=== PATIENT | male | born 1970 | race Caucasian/White ===

== ENCOUNTER 2020-11-07 14:21 | Inpatient (IN) | payer BC ==
[~2020-11-07] VITALS: Ht 165.1 cm; Wt 81.6 kg
[2020-11-07 14:28] VITALS: BP 133/96
[2020-11-07 15:15] LABS: ABSOLUTE NEUTROPHILS 10.7 thou/uL (1.4-8.2); BASOPHILS 0.4 % (0.0-2.0); HEMATOCRIT 41.3 % (42.0-52.0); HEMOGLOBIN 13.5 gm/dL (14.0-18.0); LYMPHOCYTES 3.8 % (24.0-44.0); MCH 29.3 pg (26.0-34.0); MCHC 32.7 g/dL (28.0-37.0); MCV 89.5 fL (80.0-100.0); MONOCYTES 7.6 % (1.0-8.0); PLATELET COUNT 238 thou/uL (150-400); POLYS 88.2 % (36.0-66.0); RBC 4.62 mil/uL (4.50-6.00); RDW 13.2 % (10.5-14.5); WBC 12.1 thou/uL (4.0-11.0)
[2020-11-07 15:31] LABS: ALBUMIN 3.1 g/dL (3.4-5.0); CREATININE 1.1 mg/dL (0.7-1.3); POTASSIUM 3.8 mmol/L (3.5-5.1); TOTAL BILIRUBIN 0.8 mg/dL (0.2-1.0); TOTAL PROTEIN 7.6 g/dL (6.4-8.2)
[2020-11-07 15:33] LABS: CALCIUM 8.7 mg/dL (8.5-10.1)
[2020-11-07] MEDS ORDERED: GUAIFENESIN-CODE5 ML PO (18:27)
[2020-11-07] MEDS ORDERED: MEDROL DOSPAK21 TA1 PO (18:28)
[2020-11-07] MEDS ORDERED: ASA81BEC PO (18:28)
[2020-11-07] MEDS ORDERED: AZITHROMYCIN500 MG PO (18:28)
--- NOTE | 2020-11-07 18:35 | NUR ---
KAVON-MARCOS [phone]
--- NOTE | 2020-11-07 20:31 | NUR ---
[address] [place] [id number] [phone]
[2020-11-08 08:02] VITALS: BP 118/79
[2020-11-08 12:58] VITALS: BP 113/73
[2020-11-08 14:44] VITALS: BP 113/73
[2020-11-08 15:29] VITALS: BP 113/72
[2020-11-08 16:35] VITALS: BP 125/94
--- NOTE | 2020-11-08 17:39 | NUR ---
50 year old male presented to the ED stating positive COVID results at a [facility] on [facility]-5 and symptoms have become progressively worse. NOTE PCR COVID positive test in ED. Admitted for: COVID-19 infection complicated by pneumonitis and respiratory failure/hyperglycemia/hepatitis we will continue with empiric therapy for possible secondary bacterial pneumonitis as well directed therapy toward the coronavirus, and additional diagnostic testing. Per ED record patient remains A&O x4 and askes that his Melissa be updated at [phone]. Called and spoke with Melissa and updated on role of CM. States patient has never been in a hospital before and explained how CM will follow with MD on his care and then will be able to better access needs as it begins to approach discharge disposition (s). Stated she appreciated the call and will await call to inform when patient has been moved to a unit and then eventually with CM. CM will continue to follow for discharge needs.
--- NOTE | 2020-11-08 18:25 | NUR ---
PATIENT ADMIT TO UNIT AT 1630. A/O X4. ON 6L/NC. SOB WITH EXERTION. NO PAIN. WILL KEEP MONITOR.
[2020-11-08 20:04] VITALS: BP 137/92
[2020-11-09 01:06] LABS: GLYCOHEMOGLOBIN (HGB A1C) 6.7 % (4.8-5.6); HAV IgM AB (ANTI-HAV IgM) Negative (Negative); HEPATITIS B SURFACE AG Negative (Negative); HEPATITIS C VIRUS AB <0.1 (0.0-0.9)
[2020-11-09 03:15] VITALS: BP 130/95
--- NOTE | 2020-11-09 05:01 | HC ---
[facility] [place] [address] CONSULTATION Name: MENJIVAR JORGE OROSCO Room #: 355-P ADM IN M.R.#: [id number] Admission: 11/07/20 Attend Phys: Елена Pete Discharge: Date of : 72 Report #: [id number] THIS REPORT FOR: cc: FAM - No family physician/PCP FAM - No family physician/PCP Keo Davison MD ~ DATE OF SERVICE: 11/08/2020 INFECTIOUS DISEASE CONSULTATION ATTENDING PHYSICIAN: Dr. Pete. REASON FOR EVALUATION: COVID-19 infection, complicated by pneumonitis, respiratory failure. HISTORY OF PRESENT ILLNESS: Chart reviewed, patient examined. This is a 50-year-old gentleman without significant medical history. Apparently had been feeling unwell including dyspnea, underwent COVID testing roughly 10 days ago, was confirmed to be positive and returns today with progressive dyspnea with saturations measured in the mid 80s. He does not have significant fevers, although he has had some previous. He has not had significant cough as of late. Appetite has been satisfactory. On evaluation actually had antigen was negative. PCR was positive. Glucose was slightly elevated at 127. Chest x-ray did show peripheral ground glass opacities consistent with atypical for COVID pneumonia. Lactic acid was 2.0, then repeated was 2.7, then 1.7. He was initiated on therapy with levofloxacin, given a dose of initially azithromycin and ceftriaxone. ALLERGIES: Listed as none. CURRENT MEDICATIONS: Include levofloxacin, dexamethasone, enoxaparin, zolpidem, p.r.n. analgesics and antiemetics. PAST MEDICAL HISTORY: Otherwise, unremarkable. SOCIAL HISTORY: Nonsmoker, no ethanol, no illicit drug use. FAMILY HISTORY: Noncontributory. REVIEW OF SYSTEMS: Otherwise, unremarkable 10-point review of systems. PHYSICAL EXAMINATION: GENERAL: Pleasant, alert and cooperative. He is sitting at the side of the gurney, eating his lunch, [id number] distress. He is on supplemental oxygen at 6 liters per nasal cannula. [facility] [address] [place] [address] CONSULTATION Name: JORGE WINTERS Room #: [address] [place] [address] IN M.R.#: [id number] Admission: 11/07/20 Attend Phys: Елена Pete Discharge: Date of : 72 Report #: [id number] VITAL SIGNS: Temperature 97.2, pulse 80, respirations 15, blood pressure 113/73. SKIN: Warm, dry, no rashes. HEENT: Normocephalic. Extraocular muscles are intact. NECK: Supple. LUNGS: He has got some scattered crackles at the bases posteriorly. HEART: Regular. I do not appreciate a murmur. ABDOMEN: Soft, mildly distended, nontender. /RECTAL: Deferred. LABORATORY DATA: Glucose elevated at ____. Lactic acid is 1.7. Blood cultures are sterile thus far. Electrolytes: Sodium 132, potassium 3.8, chloride 96, bicarbonate is 23, anion gap of 13, BUN and creatinine 16 and 1.1, glucose 127. AST of 131, ALT of 136. Albumin 3.1. ASSESSMENT AND PLAN: COVID-19 infection, complicated by pneumonitis, respiratory failure. He may have a new diagnosis of diabetes mellitus as well. He has got some elevated LFTs. It is unclear whether these are with the acute illness or perhaps more of a chronic issue. We will continue empiric antibacterial therapy. We will add direct as coronavirus therapy with remdesivir, ivermectin and some vitamins as well. In addition, I will check an ultrasound of the abdomen to exclude biliary tract issues and hemoglobin A1c to evaluate whether this may be something that has been previously undiagnosed. At this point, he remains somewhat tenuous. We will continue to monitor expectantly. <ELECTRONICALLY SIGNED> By: Keo Davison MD 11/09/20 0501 [id number] Keo Davison MD /nt
--- NOTE | 2020-11-09 05:02 | NUR ---
PROGRESS PT A/O X4 . REPORTS CHEST PAIN AND TIGHTNESS FROM COUGHING TYLENOL GIVEN WITH EFFECT. IVF'S INFUSING INTO RIGHT FOREARM WITHOUT DIFFICULTY. REMDESVIR GIVEN ORDERED. ON 6 LITERS O2 VIA NASAL CANNULA SATS AT 92 TO 95% , DRY COUGH NOTED LUNGS SOUND WHEEZY IN ALL RIZO. SHALLOW BREATHING NOTED. ACCUCHECKS AND SSI CONTINUE, PT VOIDING PER URINAL CLEAR YELLOW URINE IN [place] AMOUNTS. TOOK AN AMBIEN AT BEDTIME AND HAS BEEN SLEEPING ALL NIGHT.
[2020-11-09 07:20] LABS: ALBUMIN 2.7 g/dL (3.4-5.0); CALCIUM 8.9 mg/dL (8.5-10.1); DIRECT BILIRUBIN 0.1 mg/dL (<0.1-0.2); PHOSPHORUS 3.1 mg/dL (2.6-4.7); POTASSIUM 3.9 mmol/L (3.5-5.1); TOTAL BILIRUBIN 0.6 mg/dL (0.2-1.0); TOTAL PROTEIN 7.1 g/dL (6.4-8.2)
[2020-11-09 07:58] VITALS: BP 133/91
[2020-11-09 15:56] VITALS: BP 121/85
--- NOTE | 2020-11-09 18:27 | NUR ---
ASSUMED PATIENT CARE AT 0700. A/O X. UP AD FRANKI. TOLERATED ON 6L/NC. SLOWLY TOWARDS POC GOALS.
[2020-11-09 19:37] VITALS: BP 116/83
[2020-11-10 03:48] VITALS: BP 117/84
--- NOTE | 2020-11-10 05:07 | NUR ---
PROGRESS PT A/OX4 FEELS BETTER TODAY THAN PREVIOUS SHIFT, PT STILL ON 6 LITERS O2 LUNGS SOUNDS ARE NOT TIGHT YESTERDAY CRACKLES NOTED BUT NO WHEEZING DENIES PAIN JUST STATES HIS CHEST IS SORE FROM COUGHING BUT HE WOULDN'T CALL IT PAIN. VOIDING QS, COVID TREATMENT CONTINUES VSS CONTINUE TO MONITOR
[2020-11-10 05:24] LABS: ALBUMIN 2.8 g/dL (3.4-5.0); CALCIUM 8.8 mg/dL (8.5-10.1); CREATININE 1.2 mg/dL (0.7-1.3); PHOSPHORUS 3.8 mg/dL (2.5-4.9); POTASSIUM 3.6 mmol/L (3.5-5.1)
[2020-11-10 08:05] VITALS: BP 119/80
[2020-11-10 16:08] VITALS: BP 120/81
[2020-11-10 20:04] VITALS: BP 112/81
[2020-11-11 05:45] VITALS: BP 116/77
[2020-11-11 06:33] LABS: ALBUMIN 2.8 g/dL (3.4-5.0); CALCIUM 9.1 mg/dL (8.5-10.1); CREATININE 1.1 mg/dL (0.7-1.3); DIRECT BILIRUBIN 0.1 mg/dL (<0.1-0.2); POTASSIUM 3.6 mmol/L (3.5-5.1); TOTAL BILIRUBIN 0.6 mg/dL (0.2-1.0); TOTAL PROTEIN 7.1 g/dL (6.4-8.2)
--- NOTE | 2020-11-11 06:43 | NUR ---
A/O X 4.UP INDEPENDENTLY.USES NASAL CANNULA WHEN UP TO THE BATHROOM.STAYED ON THE RECLINER ALL NIGHT.DENIES PAIN.POC CONTINUED.
[2020-11-11 07:32] VITALS: BP 105/63
[2020-11-11 15:24] VITALS: BP 115/74
--- NOTE | 2020-11-11 18:02 | NUR ---
ASSUMED PATIENT CARE AT 0700. ON OPTIFOLLOW 50L/55% FIO2. SOB WITH EXERTION.VSS. WILL KEEP MONITOR.
[2020-11-11 19:37] VITALS: BP 127/72
--- NOTE | 2020-11-12 04:12 | NUR ---
Pt. slept well during the night in recliner chair. Maintaining O2 sat in the mid 90's on optiflow. Shortness of breath with exertion. Cont. on enhanced precaution , afebrile. Making some progress towards care plan goals.
[2020-11-12 05:00] VITALS: BP 104/72
[2020-11-12 07:33] VITALS: BP 101/65
--- NOTE | 2020-11-12 14:15 | NUR ---
Chart reviewed and case discussed with the care team. Pt admitted Covid+ with pneumonia and acute resp failure. Pt is in enhanced ISO and has completed 5 doses of remdesivir. He continues on iv atb/steriods/optiflow at 45liters. He is up ad samir to the bathroom and up to the chair. Clerical Clerk attempted to call the pt in his room and on his cell phone with no answer. Clerical Clerk left a message for his Melissa to contact to verify he had a pcp or clinic for f/u care at [facility]. The pt has health insurance in place and was indep prior to admission. Will follow along for possible home o2/or pcp referrals at [facility].
[2020-11-12 15:20] VITALS: BP 109/74
--- NOTE | 2020-11-12 17:46 | NUR ---
ASSUMED PATIENT CARE AT 0700. ON OPTFOLLOW 45L 55% . UP AD LIP IN ROOM. TOLERATED WELL. PROGRESSING TOWARDS POC GOALS.
[2020-11-12 19:40] VITALS: BP 114/70
[2020-11-13 03:58] VITALS: BP 107/74
--- NOTE | 2020-11-13 05:31 | NUR ---
Pt. slept well during the night on Optiflow with O2 sat in the upper 90's while asleep. He has been using his IS. Up ad samir in room with steady gait. Cont. on enhanced precaution,afebrile. Making progress towards care plan goals.
[2020-11-13 06:54] LABS: ALBUMIN 2.6 g/dL (3.4-5.0); POTASSIUM 3.8 mmol/L (3.5-5.1); TOTAL BILIRUBIN 0.5 mg/dL (0.2-1.0); TOTAL PROTEIN 6.7 g/dL (6.4-8.2)
[2020-11-13 07:41] VITALS: BP 98/64
--- NOTE | 2020-11-13 14:47 | NUR ---
SW reviewed chart and spoke with nursing and attending physician. Pt remains in Enhanced Isolation. Pt is afebrile and requiring optiflow. Pt is on IV abx and IV steroids. Plan is for pt to discharge home when medically stable. [facility] is following to assist as needed with discharge planning.
[2020-11-13 15:54] VITALS: BP 102/49
--- NOTE | 2020-11-13 18:22 | NUR ---
RN ASSUMED PT'S CARE AT 0700AM, PT IS A&OX3, PT IS ON HIGH FOLLW O2 45L/MIN/NC , O2 50%( OPT-FLOW ) TO KEEP O2SAT AT 92-95%, PT'S VS ARE STABLE, PT DENIES PAIN BY THIS TIME, PT GETS UP TO BATH ROOM AND TO CHAIR BY HIMSELF, PT IS CONTINUING COVID ISOLATION.
[2020-11-13 19:29] VITALS: BP 111/71
--- NOTE | 2020-11-14 04:36 | NUR ---
Slept well during the night. Reported breathing is getting better. Maintaining O2 sat in the mid to upper 90's on Optiflow at 50% FIO2. Cont. on enhanced precaution , afebrile. Up ad samir in room and he has been using his IS. Making progress towards care plan goals.
[2020-11-14 07:58] VITALS: BP 116/81
--- NOTE | 2020-11-14 08:44 | NUR ---
Nutrition Note: Pt seen for LOS. Pt noted to have fair to good appetite, consuming average of 76% at meals. Wt appears stable. Pt with no c/o GI distress at present, no pressure ulcers noted. Pt remains low nutritional risk with current interventions. RD will remain available.
--- NOTE | 2020-11-14 13:43 | NUR ---
SW reviewed chart and spoke with nursing and attending physician. Pt remains in Enhanced Isolation due to COVID-19. Pt is afebrile and on optiflow. Pt is on IV steroids. Pulmonology consult ordered today. Pt is ambulating in his room. Plan is for pt to discharge home when medically stable. [facility] is following to assist as needed with discharge planning.
[2020-11-14 16:35] VITALS: BP 114/77
[2020-11-14 19:30] VITALS: BP 118/77
[2020-11-15 04:18] VITALS: BP 102/62
--- NOTE | 2020-11-15 05:26 | NUR ---
assumed pt care at the change of shift, pt is awake, alert and orientedx4, remains on optiflow, o2sats stable, vss, meds given as per mar, adequate urine output, denies concerns, will pass on report
[2020-11-15 05:55] LABS: ABSOLUTE NEUTROPHILS 8.7 thou/uL (1.4-8.2); BASOPHILS 0.4 % (0.0-2.0); EOSINOPHILS 0.3 % (0.0-3.0); HEMATOCRIT 42.4 % (42.0-52.0); LYMPHOCYTES 11.7 % (24.0-44.0); MCH 29.4 pg (26.0-34.0); MCV 89.2 fL (80.0-100.0); MONOCYTES 8.2 % (1.0-8.0); PLATELET COUNT 441 thou/uL (150-400); POLYS 79.4 % (36.0-66.0); RBC 4.76 mil/uL (4.50-6.00); RDW 13.6 % (10.5-14.5)
[2020-11-15 06:04] LABS: ALBUMIN 2.7 g/dL (3.4-5.0); CALCIUM 8.9 mg/dL (8.5-10.1); CREATININE 1.1 mg/dL (0.7-1.3); D-DIMER 0.19 ug/mLFEU (0.19-0.50); FIBRINOGEN 433.4 mg/dL (210-360); POTASSIUM 3.9 mmol/L (3.5-5.1); TOTAL BILIRUBIN 0.6 mg/dL (0.2-1.0); TOTAL PROTEIN 6.7 g/dL (6.4-8.2)
[2020-11-15 07:23] VITALS: BP 109/73
--- NOTE | 2020-11-15 10:08 | NUR ---
Received awake on bed. Due medications given as prescribed, able to swallow meds w/o difficulty. On optiflow at 45liters. On MS, not on telemetry; no complains and signs of chest pain, crushing sensation and heaviness. On regular diet- tolerating well; no nausea, no vomiting and no abdominal pain noted. On blood sugar monitoring, taken and recorded accordingly; with sliding scale insulin ordered. Continent of bowel and bladder, able to use urinal and go to the toilet; output measured and recorded accordingly. With SL at R FA- on IV steroids. Assisted in ADLs. No complains of pain made during assessment. Maintained on isolation due to Covid, precautions observed. To continue monitoring patient.
[2020-11-15 11:07] LABS: ALBUMIN 2.8 g/dL (3.4-5.0); DIRECT BILIRUBIN 0.1 mg/dL (<0.1-0.2); TOTAL BILIRUBIN 0.6 mg/dL (0.2-1.0); TOTAL PROTEIN 6.8 g/dL (6.4-8.2)
--- NOTE | 2020-11-15 13:14 | NUR ---
SW reviewed chart and spoke with nursing and attending physician. Pt remains in Enhanced Isolation due to COVID-19. Pt is afebrile and requiring optiflow. Pt is on IV abx and IV steroids. Pt has been started on Remdesivir and Ivermectin. No weekend discharge planned. [facility] is following to assist as needed with discharge planning.
[2020-11-15 15:23] VITALS: BP 128/88
[2020-11-15 19:32] VITALS: BP 106/79
[2020-11-16 04:42] VITALS: BP 118/85
--- NOTE | 2020-11-16 05:58 | NUR ---
CONTINUES ON 10 LITERS N/C. DENIES PAIN. RESTING QUIETLY. MOSTLY SLEEPING IN THE CHAIR TONIGHT.
[2020-11-16 06:52] LABS: ALBUMIN 2.6 g/dL (3.4-5.0); CALCIUM 8.8 mg/dL (8.5-10.1); CREATININE 1.1 mg/dL (0.7-1.3); DIRECT BILIRUBIN 0.1 mg/dL (<0.1-0.2); PHOSPHORUS 3.6 mg/dL (2.5-4.9); POTASSIUM 3.8 mmol/L (3.5-5.1); TOTAL BILIRUBIN 0.6 mg/dL (0.2-1.0); TOTAL PROTEIN 6.5 g/dL (6.4-8.2)
[2020-11-16 07:51] VITALS: BP 109/79
--- NOTE | 2020-11-16 15:36 | NUR ---
pt resting in chair, no complaints of pain. Oxygen in place.
[2020-11-16 16:16] VITALS: BP 109/68
[2020-11-16 20:25] VITALS: BP 107/76
[2020-11-17 03:08] VITALS: BP 110/66
[2020-11-17 05:47] LABS: ALBUMIN 2.6 g/dL (3.4-5.0); CALCIUM 8.3 mg/dL (8.5-10.1); CREATININE 1.1 mg/dL (0.7-1.3); DIRECT BILIRUBIN 0.1 mg/dL (<0.1-0.2); PHOSPHORUS 3.9 mg/dL (2.6-4.7); POTASSIUM 3.6 mmol/L (3.5-5.1); TOTAL BILIRUBIN 0.6 mg/dL (0.2-1.0); TOTAL PROTEIN 6.4 g/dL (6.4-8.2)
[2020-11-17 15:59] VITALS: BP 104/76
[2020-11-17 20:14] VITALS: BP 118/87
[2020-11-18 03:20] VITALS: BP 110/76
--- NOTE | 2020-11-18 06:41 | NUR ---
Pt. slept well during the night. Maintaining O2 sat in the mid to upper 90's on 4L/NC. Using his IS .Up ad samir in room with steady gait. Afebrile. Making progress towards care plan nahomy.
[2020-11-18 07:46] VITALS: BP 120/83
[2020-11-18 08:06] LABS: ALBUMIN 2.6 g/dL (3.4-5.0); CALCIUM 8.7 mg/dL (8.5-10.1); DIRECT BILIRUBIN 0.1 mg/dL (<0.1-0.2); PHOSPHORUS 3.9 mg/dL (2.6-4.7); POTASSIUM 3.7 mmol/L (3.5-5.1); TOTAL BILIRUBIN 0.6 mg/dL (0.2-1.0); TOTAL PROTEIN 6.2 g/dL (6.4-8.2)
--- NOTE | 2020-11-18 14:25 | NUR ---
SW reviewed chart and spoke with nursing and attending physician. Pt remains in Enhanced Isolation due to COVID. Pt is afebrile and is on 5L of O2. Pt is on IV steroids. Pt is completing course of Remdesivir. Pt will need to have rest/exercise oximetry prior to discharge to determine home O2 needs. Plan is for pt to discharge home when medically stable. [facility] is following to assist as needed with discharge planning.
[2020-11-18 15:33] VITALS: BP 115/84
[2020-11-18 19:48] VITALS: BP 109/80
[2020-11-19 03:36] VITALS: BP 108/72
--- NOTE | 2020-11-19 04:17 | NUR ---
Pt. has slept well during the night. Tolerating room air well with no respiratory distress. Maintaining O2 sat in the mid 90's. Up ad samir in room with steady gait. Afebrile. Voiding per urinal. Progressing towards discharge goals.
[2020-11-19 07:33] VITALS: BP 116/81
--- NOTE | 2020-11-19 12:59 | NUR ---
CARE ASSUMED AT 0700, PT ALERT AND ORIENTED X4, DENIES ANY PAIN, NAUSEA AND VOMITTING. PT IS ON 4L OF OXYGEN PORFIRIO. RT DID REST/EXERCISE ON PT, NEED 4L OAT HOME AND 6L WITH ACTIVITY. DR. LAUREN CRAMER, STATED, PT WILL NEED HOMEHEALTH TO TITRATE O2 DOWN. CASE MGT, JERI MADE AWARE. PT IS UP AD FRANKI. DISCHARGE IN PROCESS.
[2020-11-19] MEDS ORDERED: PEPCID20 MG PO (13:30)
[2020-11-19] MEDS ORDERED: ZINC SULFATE 2220 MG PO (13:30)
[2020-11-19] MEDS ORDERED: ELIQUIS5 MG PO (13:38)
[2020-11-19] MEDS ORDERED: PREDNISONE 20 M20 M1 PO (13:38)
[2020-11-19] MEDS ORDERED: VITAMIN B-1100 M2 PO (13:38)
[2020-11-19] MEDS ORDERED: ACEROLA C500 MG PO (13:38)
[2020-11-19 15:05] VITALS: BP 116/81
--- NOTE | 2020-11-19 16:11 | NUR ---
DISCHARGE NOTE: SW reviewed chart and spoke with nursing and attending physician. Pt is medically stable for discharge home today. Orders written for HH and Home O2. SW spoke with pt via phone to discuss discharge plan. Pt aware that he is discharging home on O2. SW discussed options for HH/O2 companies. Pt requested SW contact his . SW left voice message for pt's , Melissa ([phone]). SW faxed info and script to [facility] for home O2. Portable O2 tank delivered by [facility] liaison. community planner sending HH referral. Contact info for [facility] placed in pt's discharge summary. HH to contact pt to arrange HH visits. SW placed info in discharge summary to contact insurance to find an in-network provider for a PCP. No additional SW needs identified at this time, but is available to assist should needs arise.
--- NOTE | 2020-11-19 16:20 | NUR ---
DISCHARGE INSTRUCTION GIVEN TO PT, AND ON THE PHONE WELL. ALL BELONGINGS PACKED AND SENT WITH PT
[2020-11-19 17:13] VITALS: BP 116/81
--- NOTE | 2020-11-19 17:14 | NUR ---
FAXED REFERRAL TO [facility] SPOKE WITH INTAKE THEY CAN ACCEPT. FAXED DC ORDERS/SUMMARY RECEIVED CONFIRMATION.
== END 2020-11-19 16:25 | disposition home health service (06) | DRG 871 ==
LOC: ER 14:21 → 3W 16:35 → EROBS 16:35 → 3W 11-08 16:01
PROVIDERS: Emergency Medicine; Hospitalist; Specialist; ADMIT Hospitalist; ATTEND Hospitalist
PROC: 5A0935A Assistance with Respiratory Ventilation, Less than 24 Consecutive Hours, High Flow/Velocity Cannula (ICD-10-PCS; principal; 2020-11-08)
PROC: 5A0955A Assistance with Respiratory Ventilation, Greater than 96 Consecutive Hours, High Flow/Velocity Cannula (ICD-10-PCS; 2020-11-10)
PROC: XW033E5 Introduction of Remdesivir Anti-infective into Peripheral Vein, Percutaneous Approach, New Technology Group 5 (ICD-10-PCS; 2020-11-15)
DX: A41.9 Sepsis, unspecified organism (principal); U07.1 COVID-19; J12.82 Pneumonia due to coronavirus disease 2019; J80 Acute respiratory distress syndrome; E44.0 Moderate protein-calorie malnutrition; E11.65 Type 2 diabetes mellitus with hyperglycemia; K75.9 Inflammatory liver disease, unspecified; E66.01 Morbid (severe) obesity due to excess calories; I11.0 Hypertensive heart disease with heart failure; I50.9 Heart failure, unspecified; K76.0 Fatty (change of) liver, not elsewhere classified; T38.0X5A Adverse effect of glucocorticoids and synthetic analogues, initial encounter; Z79.899 Other long term (current) drug therapy; Z68.30 Body mass index [BMI] 30.0-30.9, adult; Y92.89 Other specified places as the place of occurrence of the external cause
CPT/HCPCS: 10080; 10879

== ENCOUNTER → 2021-01-01 | Outpatient (CLI) | payer BC ==
[~2021-01-01] MED LIST: ACEROLA C500 MG PO; ASA81BEC PO; AZITHROMYCIN500 MG PO; ELIQUIS5 MG PO; GUAIFENESIN-CODE5 ML PO; MEDROL DOSPAK21 TA1 PO; PEPCID20 MG PO; PREDNISONE 20 M20 M1 PO; VITAMIN B-1100 M2 PO; ZINC SULFATE 2220 MG PO
== END ==
LOC: RAD 08:28
PROVIDERS: ATTEND Internal Medicine
DX: R06.00 Dyspnea, unspecified (principal)

== ENCOUNTER → 2021-01-07 | Outpatient (CLI) | payer BC | LOC: CAT 08:38 | PROVIDERS: ATTEND Internal Medicine | DX: J32.0 Chronic maxillary sinusitis (principal); N20.0 Calculus of kidney; J84.9 Interstitial pulmonary disease, unspecified; Z86.16 Personal history of COVID-19; N28.1 Cyst of kidney, acquired; J98.4 Other disorders of lung ==

== ENCOUNTER → 2021-02-05 | Outpatient (CLI) | payer BC | LOC: LAB 08:34 | PROVIDERS: ATTEND Internal Medicine | DX: Z01.812 Encounter for preprocedural laboratory examination (principal); Z20.822 Contact with and (suspected) exposure to COVID-19 ==

== ENCOUNTER → 2021-04-24 | Outpatient (CLI) | payer BC ==
[~2021-04-24] MED LIST changes: +AZITHROMYCIN 2250 MG PO; +CODEINE-GUAIFE120 ML PO; +MEDROLDOSEPACK PO
== END ==
LOC: CAT 10:28
PROVIDERS: ATTEND Internal Medicine
DX: J84.89 Other specified interstitial pulmonary diseases (principal); N20.0 Calculus of kidney; N28.1 Cyst of kidney, acquired; J98.4 Other disorders of lung; Z86.16 Personal history of COVID-19